=== PATIENT | male | born 1985 | race African-American/Black ===

== ENCOUNTER 2023-06-07 11:30 | Emergency (ER) | payer SELFPAY ==
[2023-06-07] MEDS: Lidocaine 2% 11 ML Jelly Filled Syringe MUCMEM ONE (12:41)
[2023-06-07] MEDS: Witch Hazel Medicated Pads 40/Jar TOP PRN (12:41)
[2023-06-07] MEDS: Ondansetron 4 MG Tab.DIS PO ONE (12:42)
[2023-06-07] MEDS: Bupivacaine 0.5% 10 ML SDV INJECT ONE (12:42)
[2023-06-07] MEDS: Acetaminophen/oxyCODONE 325-5 MG Tab PO ONE (12:42)
== END 2023-06-07 13:56 | disposition home or self-care (01) ==
LOC: JD.ED 11:30
DX: K64.5 Perianal venous thrombosis (principal)
CPT/HCPCS: 46083; 99282; A9270; J0665

== ENCOUNTER 2023-06-10 14:05 | Day surgery (SDC) | payer SELFPAY ==
[~2023-06-10 14:05] MED LIST: Lidocaine 1% 6 ML ONE; Midazolam 1 MG/ML 2 ML SDV ONE; Propofol 200 MG/20 ML SDV ONE; Rocuronium 50 MG/5 ML Vial ONE; Succinylcholine 200 MG/10 ML MDV ONE; ceFAZolin 2 GM Vial ONE; fentaNYL 250 MCG/5 ML SDV ONE
[2023-06-10] MEDS ORDERED: Ondansetron 4 MG/2 ML SDV ONE (14:38)
[2023-06-10] MEDS ORDERED: Metoclopramide 10 MG/2 ML SDV ONE (14:38)
[2023-06-10] MEDS ORDERED: EPINEPHrine 1 MG/ML SDV ONE (14:39)
[2023-06-10] MEDS ORDERED: Lactated Ringers 1,000 ML ONE (15:01)
[2023-06-10] MEDS ORDERED: dexmedeTOMIDine HCl 200 MCG/2 ML SDV ONE (15:02)
[2023-06-10] MEDS: Lidocaine 1% 10 ML MDV ONE (15:39)
[2023-06-10] MEDS: Bupivacaine 0.5% 10 ML SDV ONE (15:39)
[2023-06-10] MEDS: fentaNYL 100 MCG/2 ML SDV IVPUSH PRN (17:00)
[2023-06-10] MEDS: HYDROmorphone 0.5 MG/0.5 ML Syringe IVPUSH PRN (17:20)
[2023-06-10] MEDS: oxyCODONE 5 MG Tab PO ONE (18:00)
== END 2023-06-10 18:00 | disposition home or self-care (01) ==
LOC: JD.SDS 14:05
PROVIDERS: ATTEND Student in an Organized Health Care Education/Training Program
DX: K64.4 Residual hemorrhoidal skin tags (principal); F17.200 Nicotine dependence, unspecified, uncomplicated
CPT/HCPCS: 46320; A9270; J0330; J0665; J0690; J1170; J2250; J2405; J2704; J2765; J3010; J7120; 00902; 99140; J0171; J3490